=== PATIENT | female | born 1985 | race African-American/Black ===

== ENCOUNTER 2022-05-28 21:12 | Emergency (ER) | payer MEDICAID ==
[~2022-05-28] VITALS: Ht 160 cm; Wt 52.0 kg
[~2022-05-28 21:12] MED LIST: PREN1TAB23
[2022-05-28 22:07] VITALS: BP 111/62
[2022-05-28 22:51] LABS: BASOPHILS % 0.8 % (0.0-2.0); EOSINOPHILS % 2.2 % (0.0-5.0); HEMATOCRIT. 32.4 % (36.0-48.0); HEMOGLOBIN. 10.6 g/dL (12.0-16.0); LYMPHOCYTES % 26.9 % (20.0-50.0); MEAN CORPUSCULAR HEMOGLOBIN 23.9 pg (28.0-32.0); MEAN CORPUSCULAR VOLUME 73.3 fL (81.0-99.0); MEAN PLATELET VOLUME 8.1 fl (7.4-10.4); NEUTROPHILS % 63.1 % (40.0-76.0); PLATELET 251 x1000/uL (130-400); RED BLOOD CELL COUNT 4.42 mill/uL (4.2-5.4)
[2022-05-28 22:58] LABS: CHLORIDE 105 mEq/L (98-107)
[2022-05-28 23:22] LABS: B-HCG QUANTITATIVE 98238 mIU/mL (<3)
== END 2022-05-29 00:27 | disposition home or self-care (01) ==
LOC: ER 21:12
DX: O26.891 Other specified pregnancy related conditions, first trimester (principal); R10.9 Unspecified abdominal pain; Z3A.01 Less than 8 weeks gestation of pregnancy
CPT/HCPCS: 36415; 76801; 80053; 84702; 85025; 86850; 86900; 99284